=== PATIENT | female | born 1955 | race Asian ===

== ENCOUNTER 2020-08-05 08:02 | Outpatient (REF) | payer MEDICARE, SELFPAY ==
--- NOTE | 2020-08-05 | MM_ITS ---
EXAMINATION: MM SCREENING DIGITAL BREAST TOMOSYNTHESIS, BILATERAL CLINICAL INFORMATION: Screening. Asymptomatic. Right lumpectomy with radiation 2008 for breast cancer. Due for yearly. COMPARISON: Mammography: 07/31/2019, 07/29/2018, 07/19/2018, 07/16/2017 TECHNIQUE: Digital breast tomosynthesis is performed in both the craniocaudal and mediolateral oblique views along with computer-aided detection (CAD). Synthesized 2D images are generated from the tomosynthesis. Additional exaggerated right CC view is provided. FINDINGS: There are scattered areas of fibroglandular density (ACR BI-RADS breast composition Category b). Scattered bilateral asymmetries are stable. Nodular asymmetry outer right breast on CC view is stable. Neither breast shows interval mass or architectural abnormality or abnormal calcifications. Again, there are post therapy changes on the right with stable scarring posterior 1:00 position. There is some dystrophic calcification in the center of the scar. Surgical clips again noted right axilla. No significant changes from prior studies. IMPRESSION: No significant changes from prior studies. Post therapy changes right breast. ASSESSMENT: BI-RADS 2: Benign RECOMMENDATION: Routine annual mammography screening. This patient's information was entered into a reminder system with a target due date for their next mammogram.
== END 2020-08-05 08:03 | disposition home or self-care (01) ==
LOC: HO.MAMMO 08:02
PROVIDERS: PCP Internal Medicine; Visit Provider Internal Medicine
DX: Z12.31 Encounter for screening mammogram for malignant neoplasm of breast (principal)
CPT/HCPCS: 77063; 77067; 78014

== ENCOUNTER 2021-08-08 07:48 | Outpatient (REF) | payer MEDICARE, SELFPAY ==
--- NOTE | ~2021-08-08 | MM_ITS ---
EXAMINATION: MM SCREENING DIGITAL BREAST TOMOSYNTHESIS, BILATERAL CLINICAL INFORMATION: Screening. Asymptomatic. Remote right lumpectomy with radiation for breast cancer, 2008. Due for yearly. COMPARISON: Mammography: 08/05/2020, 07/31/2019, 07/29/2018, 07/19/2018, 07/16/2017, 07/13/2016, 07/06/2015. TECHNIQUE: Digital breast tomosynthesis is performed in both the craniocaudal and mediolateral oblique views along with computer-aided detection (CAD). Synthesized 2D images are generated from the tomosynthesis. FINDINGS: There are scattered areas of fibroglandular density (ACR BI-RADS breast composition Category b). Parenchymal pattern is similar to prior studies. The left breast is unremarkable. There is no developing density or interval mass or architectural abnormality. The axilla and skin contours are smooth. Right breast has post therapy changes with old scarring posterior 1:00 position and right axilla with right axillary surgical clips. There are interval coarse benign dystrophic calcification in the center of the scar. Nodularity mid upper outer right breast is stable from prior exams. No interval mass or developing density. MM/MM tomosynthesis screening BI IMPRESSION: 1. No mammographic evidence of malignancy. 2. Post therapy changes right breast with interval benign dystrophic calcifications in the scar. ASSESSMENT: BI-RADS 2: Benign RECOMMENDATION: Routine annual mammography screening. This patient's information was entered into a reminder system with a target due date for their next mammogram.
== END 2021-08-08 07:49 | disposition home or self-care (01) ==
LOC: HO.MAMMO 07:48
PROVIDERS: Visit Provider Internal Medicine
DX: Z12.31 Encounter for screening mammogram for malignant neoplasm of breast (principal)
CPT/HCPCS: 77063; 77067

== ENCOUNTER 2021-10-03 12:19 | Outpatient (REF) | payer MEDICARE, SELFPAY ==
[2021-10-03 13:56] LABS: Estimated Average Glucose 128 mg/dL; Hemoglobin A1c % 6.1 %
[2021-10-03 14:33] LABS: Alanine Aminotransferase 13 U/L (0-31); Albumin Level 4.2 g/dL (3.5-5.0); Alkaline Phosphatase 59 U/L (39-117); Anion Gap 13 (12-20); Aspartate Amino Transferase 18 U/L (5-31); Bilirubin Total 0.5 mg/dL (0.0-1.0); Blood Urea Nitrogen 17 mg/dL (9-16); Calcium 8.9 mg/dL (8.4-10.2); Carbon Dioxide 26 mmol/L (22-29); Chloride 107 mmol/L (96-108); Estimated Glomerular Filt Rate > 60; Glucose Fasting 101 mg/dL (60-99); Sodium 142 mmol/L (135-145); Total Protein 7.1 g/dL (6.5-8.0)
== END 2021-10-03 12:20 | disposition home or self-care (01) ==
LOC: HO.10HDL 12:19
PROVIDERS: Visit Provider Internal Medicine
DX: E11.9 Type 2 diabetes mellitus without complications (principal); E78.00 Pure hypercholesterolemia, unspecified; I10 Essential (primary) hypertension; Z68.25 Body mass index [BMI] 25.0-25.9, adult
CPT/HCPCS: 36415; 80053; 83036

== ENCOUNTER 2021-12-22 15:50 | Outpatient (REF) | payer MEDICARE, SELFPAY ==
[2021-12-22 16:48] LABS: Estimated Average Glucose 134 mg/dL; Hemoglobin A1c % 6.3 %
[2021-12-22 16:54] LABS: Alanine Aminotransferase 13 U/L (0-31); Albumin Level 4.2 g/dL (3.5-5.0); Alkaline Phosphatase 57 U/L (39-117); Anion Gap 12 (12-20); Aspartate Amino Transferase 19 U/L (5-31); Bilirubin Total 0.6 mg/dL (0.0-1.0); Blood Urea Nitrogen 17 mg/dL (9-16); Carbon Dioxide 27 mmol/L (22-29); Chloride 104 mmol/L (96-108); Cholesterol 157 mg/dL; Estimated Glomerular Filt Rate > 60; Glucose Random 105 mg/dL (60-115); HDL Cholesterol 58 mg/dL; LDL Cholesterol Calculated 90 mg/dl; Potassium 4.2 mmol/L (3.3-5.1); Sodium 139 mmol/L (135-145); Total Protein 7.1 g/dL (6.5-8.0); Triglycerides 49 mg/dL
[2021-12-22 17:19] LABS: Vitamin B12 496 pg/mL (200-900)
[2021-12-22 17:24] LABS: Creatinine Urine 23.53 mg/dL; Microalbumin Urine < 5.0 mg/L
== END 2021-12-22 15:51 | disposition home or self-care (01) ==
LOC: HO.LAB 15:50
PROVIDERS: PCP Internal Medicine; Visit Provider Internal Medicine
DX: E11.9 Type 2 diabetes mellitus without complications (principal); E78.00 Pure hypercholesterolemia, unspecified
CPT/HCPCS: 36415; 80053; 80061; 82043; 82607; 83036

== ENCOUNTER 2022-01-02 06:00 | Day surgery (SDC) | payer MEDICARE, SELFPAY ==
[2021-12-26 15:17] VITALS: BMI 22.3
--- NOTE | 2021-12-29 12:43 | MHC.SHP ---
Pre-Procedural Eval Section A Date of Service: 12/29/21 The patient is an INPATIENT: No Changes since office visit: No Cold of Flu in the past 2 weeks, No New Medical Problems, No Changes in Medication and No Patient answered all questions The History & Physical has been completed within 30 days and I have reviewed it.: Yes Section B Chief Complaint: cataract Allergies: Allergies Allergy/AdvReac Type Severity Reaction Status Date / Time codeine Allergy Severe Heartburn Verified 12/26/21 14:59 Plan Diagnosis/Plan: Unchanged I have reviewed the history and physical and performed a pertinent physical examination on my patient. No changes have occurred unless specified.
[2022-01-02] MEDS: Tetracaine HCl/PF 0.5% Oph Sol 4 ML DROPS 1 DROP EYE-RIGHT (06:26)
[2022-01-02 06:27] VITALS: BP 126/60; PULSE 75; RESP 18; TEMP 37.1; O2SAT 98
[2022-01-02] MEDS: Tropicamide 1 % Ophth Sol 3 ML BTL 1 DROP EYE-RIGHT ×3 (06:32→06:39)
[2022-01-02 06:34] LABS: Glucose, Whole Blood 88 mg/dL (60-115)
[2022-01-02] MEDS: Phenylephrine HCL 2.5% Oph SoL 2 ML BOTTLE 1 DROP EYE-RIGHT ×3 (06:35→06:41)
[2022-01-02] MEDS: Lactated Ringers 500 ML 50 ML IVCONT (07:00)
--- NOTE | 2022-01-02 07:06 | P.CONAN_ITS ---
HPI - Anesthesia Eval Consult details Narrative: right eye cataract [facility] Past Medical History Medical History (Updated 12/26/21 @ 15:16 by Francisca Martinez RN) Breast cancer, right breast COVID-19 vaccine series completed Pre-diabetes Family History Family history of problems with anesthesia: No Surgical History Surgical History (Updated 12/26/21 @ 15:16 by Francisca Martinez RN) H/O colonoscopy History of Hx of partial mastectomy History of Problems with Anesthesia: No Social History Social History Are you a primary home visit field care manager to a significant other at home: No Do you presently have visiting nurse or other home services: No Patient Tobacco Use Status: Never used Tobacco Use of substances other than those prescribed or required for medical reasons: No Have you been hit, kicked, punched, or otherwise hurt by someone within the past year? If so, by whom?: No Are you DNR?: No Advance Directives: No Advance Directives Information Provided: Yes (brochure mailed) Advance Directives on File: No Recently lost weight without trying: No Eating poorly because of decreased appetite: No Nutrition Risks: No Nutritional Risk Poor oral hygiene: No Meds Allergies Allergy/AdvReac Type Severity Reaction Status Date / Time codeine Allergy Severe Heartburn Verified 12/26/21 14:59 Active Medications: Current Medications Lactated Ringer's (Lr) 500 mls @ 50 mls/hr IVCONT .Q10H TIFFANY Povidone Iodine (Povidone Iodine 5 % Ophth Soln 30 Ml Bottle) 1 appl EYE-RIGHT PREOP PRN PRN Reason: Pre-Op Surgical Implant Prophy Home Medications Medication Instructions Recorded Confirmed Last Taken Type atorvastatin 10 mg tablet 1 tab PO DAILY 12/26/21 12/26/21 Unknown History cholecalciferol (vitamin D3) 25 25 mcg PO DAILY 12/26/21 12/26/21 Unknown History mcg (1,000 unit) capsule (Vitamin D3) lisinopril 2.5 mg tablet 1 tab PO DAILY 12/26/21 12/26/21 Unknown History metformin 500 mg tablet 1 tab PO BID 12/26/21 12/26/21 Unknown History multivitamin 1 tab PO DAILY 12/26/21 12/26/21 Unknown History Exam Exam Date and Time: January 02, 2022 0706 Height,Weight and Vital Signs: Height 5 ft 1.5 in Weight 54.431 kg Last Vital Signs Temp 98.7 F 01/02/22 06:27 Pulse 75 01/02/22 06:27 Resp 18 01/02/22 06:27 BP 126/60 01/02/22 06:27 Pulse Ox 98 01/02/22 06:27 Pertinent Lab Results Pertinent Lab Results: Laboratory Tests 01/02/22 06:31 POC Glucose 88 Airway Mallampati Class: II TM Dist: >3cm Neck ROM: Full Denture: Upper Loose/Missing/Broken Teeth: Yes Heart: rrr+s1s2 Lungs: cta b/l Assessment and Plan Assessment Anesthesia Assessment: Anesthesia Plan Discussed and Chart Reviewed Final Anesthetic Review Family History of Problems with Anesthesia: No History of Problems with Anesthesia: No NPO: Yes ASA Class: III Final Preanesthetic Review: No Changes in Pt Med Stat, Meds/Allgs Chart Reviewed, Consent Obtained/Reviewed and Anes Risks/Benef Reviewed Patient Risk: Intermediate Procedure Risk: Low Assessment/Block/Sedation in SS: Assess/Block/Sedation-SS Anesthetic Plan Anesthetic Plan: MAC: and Agree w/ Assess. and Plan Disposition: Standard PACU
[2022-01-02 07:54] VITALS: BP 99/55; PULSE 74; RESP 18; TEMP 36.6; O2SAT 97
--- NOTE | 2022-01-02 07:57 | HO.PNOPHT ---
Ophthalmology Procedure Procedure Date of Service: 01/02/22 Ophthalmology Lenses: LUIS MANUEL [id number] (23.5) Procedure Notes: PREOPERATIVE DIAGNOSIS: Decreased visual acuity right eye secondary to cataract POSTOPERATIVE DIAGNOSIS: Same PROCEDURE: Right cataract extraction with intraocular lens insertion SURGEON: Maxwell Zacarias M.D. ANESTHESIA: Topical/MAC ESTIMATED BLOOD LOSS: None COMPLICATIONS: None After obtaining informed consent, the patient was brought to the operating room suite and placed in the supine position. After adequate sedation per anesthesia, topical drops of Tetracaine were given to the right eye. The eye was then prepped and draped in the usual sterile fashion. The operating room microscope was then positioned over the operative eye and a lid speculum placed. A paracentesis was created. Viscoelastic was then instilled into the anterior chamber. A three plane incision was then created temporally, utilizing a 2.85 mm keratome. Capsulotomy forceps were then utilized to create a circular tear capsulotomy. Hydrodissection and hydrodelineation were carried out until adequate mobilization of the nucleus occurred. Phacoemulsification was then utilized to remove the dense central nucleus followed by removal of the cortical material utilizing the automated aspiration irrigation unit. Viscoelastic was instilled into the posterior capsular bag followed by placement of a posterior chamber intraocular lens without difficulty. The residual Viscoelastic was then removed utilizing the automated IA machine. The wound was checked and found to be watertight. The patient tolerated the procedure well and the lid speculum was removed. Intracameral injection of Vigamox 0.1 mL followed by a subtenon injection of Kenalog-40 0.2 mL were administered. The patient will be seen in the a.m.
== END 2022-01-02 08:00 | disposition home or self-care (01) ==
PROVIDERS: PCP Internal Medicine; Visit Provider Ophthalmology
PROC: (CPT 66985; principal; 2022-01-02 07:30)
DX: H25.11 Age-related nuclear cataract, right eye (principal); H52.4 Presbyopia; E11.9 Type 2 diabetes mellitus without complications; I10 Essential (primary) hypertension; Z79.84 Long term (current) use of oral hypoglycemic drugs; Z79.899 Other long term (current) drug therapy; Z88.8 Allergy status to other drugs, medicaments and biological substances
CPT/HCPCS: 66984; 82947; J2250; J3010; J3300; V2632

== ENCOUNTER 2022-01-16 06:32 | Day surgery (SDC) | payer MEDICARE, SELFPAY ==
[2021-12-26 15:19] VITALS: BMI 22.3
--- NOTE | 2022-01-13 08:46 | HO.ANESPROP2 ---
Documented by User: Toña Hoskins NP 01/13/22 08:46 HPI - Anesthesia Eval Consult details Narrative: 66yo F for Left Cataract Extraction IOL Insertion PCP cleared Right eye 01/02/22 with MAC: Fent 50, Midaz 2 PMFSH Past Medical History Medical History Breast cancer, right breast COVID-19 vaccine series completed Pre-diabetes Family History Family history of problems with anesthesia: No Surgical History Surgical History H/O colonoscopy History of Hx of partial mastectomy History of Problems with Anesthesia: No Social History Social History Are you a primary day care center director to a significant other at home: No Do you presently have visiting nurse or other home services: No Patient Tobacco Use Status: Never used Tobacco Use of substances other than those prescribed or required for medical reasons: No Have you been hit, kicked, punched, or otherwise hurt by someone within the past year? If so, by whom?: No Are you DNR?: No Advance Directives: No Advance Directives Information Provided: Yes Advance Directives on File: No Recently lost weight without trying: No Eating poorly because of decreased appetite: No Poor oral hygiene: No Meds Allergies Allergy/AdvReac Type Severity Reaction Status Date / Time codeine Allergy Severe Heartburn Verified 01/16/22 06:56 Home Medications Medication Instructions Recorded Confirmed Last Taken Type atorvastatin 10 mg tablet 1 tab PO DAILY 12/26/21 12/26/21 Unknown History cholecalciferol (vitamin D3) 25 25 mcg PO DAILY 12/26/21 12/26/21 Unknown History mcg (1,000 unit) capsule (Vitamin D3) lisinopril 2.5 mg tablet 1 tab PO DAILY 12/26/21 12/26/21 Unknown History metformin 500 mg tablet 1 tab PO BID 12/26/21 12/26/21 Unknown History multivitamin 1 tab PO DAILY 12/26/21 12/26/21 Unknown History Exam Exam Date and Time: January 13, 2022 0846 Height,Weight and Vital Signs: Height 5 ft 1.5 in Weight 54.431 kg Assessment and Plan Assessment Anesthesia Assessment: Chart Reviewed Final Anesthetic Review Family History of Problems with Anesthesia: No History of Problems with Anesthesia: No Documented by User: Alton Castorena MD 01/16/22 07:05 PMFSH Past Medical History Medical History Breast cancer, right breast COVID-19 vaccine series completed Pre-diabetes Surgical History Surgical History H/O colonoscopy History of Hx of partial mastectomy Social History Social History Are you a primary day care center director to a significant other at home: No Do you presently have visiting nurse or other home services: No Patient Tobacco Use Status: Never used Tobacco Use of substances other than those prescribed or required for medical reasons: No Have you been hit, kicked, punched, or otherwise hurt by someone within the past year? If so, by whom?: No Are you DNR?: No Advance Directives: No Advance Directives Information Provided: Yes Advance Directives on File: No Recently lost weight without trying: No Eating poorly because of decreased appetite: No Poor oral hygiene: No Meds Allergies Allergy/AdvReac Type Severity Reaction Status Date / Time codeine Allergy Severe Heartburn Verified 01/16/22 06:56 Home Medications Medication Instructions Recorded Confirmed Last Taken Type atorvastatin 10 mg tablet 1 tab PO DAILY 12/26/21 12/26/21 Unknown History cholecalciferol (vitamin D3) 25 25 mcg PO DAILY 12/26/21 12/26/21 Unknown History mcg (1,000 unit) capsule (Vitamin D3) lisinopril 2.5 mg tablet 1 tab PO DAILY 12/26/21 12/26/21 Unknown History metformin 500 mg tablet 1 tab PO BID 12/26/21 12/26/21 Unknown History multivitamin 1 tab PO DAILY 12/26/21 12/26/21 Unknown History Exam Airway Mallampati Class: II TM Dist: >3cm Neck ROM: Full Loose/Missing/Broken Teeth: No Heart: rrr+s1s2 Lungs: cta b/l Assessment and Plan Assessment Anesthesia Assessment: Anesthesia Plan Discussed Final Anesthetic Review NPO: Yes ASA Class: II Final Preanesthetic Review: No Changes in Pt Med Stat, Meds/Allgs Chart Reviewed, Consent Obtained/Reviewed and Anes Risks/Benef Reviewed Patient Risk: Low Procedure Risk: Low Assessment/Block/Sedation in SS: Assess/Block/Sedation-SS Anesthetic Plan Anesthetic Plan: MAC: and Agree w/ Assess. and Plan Disposition: Standard PACU
[2022-01-16 06:56] VITALS: BP 124/56; PULSE 64; RESP 16; TEMP 36.2; O2SAT 97
[2022-01-16] MEDS: Tetracaine HCl/PF 0.5% Oph Sol 4 ML DROPS 1 DROP EYE-LEFT (07:01)
[2022-01-16] MEDS: Tropicamide 1 % Ophth Sol 3 ML BTL 1 DROP EYE-LEFT ×3 (07:04→07:16)
[2022-01-16] MEDS: Phenylephrine HCL 2.5% Oph SoL 2 ML BOTTLE 1 DROP EYE-LEFT ×3 (07:08→07:18)
[2022-01-16] MEDS: Lactated Ringers 500 ML 50 ML IV (07:15)
--- NOTE | 2022-01-16 08:26 | HO.PNOPHT ---
Ophthalmology Procedure Procedure Date of Service: 01/16/22 Ophthalmology Viscoelastic: Healskip Duet Dual Pack Pro Ophthalmology Lenses: TECCALISTA [id number] (24) Procedure Notes: PREOPERATIVE DIAGNOSIS: Decreased visual acuity left eye secondary to cataract POSTOPERATIVE DIAGNOSIS: Same PROCEDURE: Left cataract extraction with intraocular lens insertion SURGEON: Maxwell Zacarias M.D. ANESTHESIA: Topical/MAC ESTIMATED BLOOD LOSS: None COMPLICATIONS: None After obtaining informed consent, the patient was brought to the operation room suite and placed in the supine position. After adequate sedation per anesthesia, topical drops of Tetracaine were given to the left eye. The eye was then prepped and draped in the usual sterile fashion. The operating room microscope was then positioned over the operative eye and a lid speculum placed. A paracentesis was created. Viscoelastic was then instilled into the anterior chamber. A three plane incision was then created temporally, utilizing a 2.85 mm keratome. Capsulotomy forceps were then utilized to create a circular tear capsulotomy. Hydrodissection and hydrodelineation were carried out until adequate mobilization of the nucleus occurred. Phacoemulsification was then utilized to remove the dense central nucleus followed by removal of the cortical material utilizing the automated aspiration irrigation unit. Viscoat elastic was instilled into the posterior capsular bag followed by placement of a posterior chamber intraocular lens without difficulty. The residual Viscoat elastic was then removed utilizing the automated IA machine. The wound was check and found to be watertight. The patient tolerated the procedure well and the lid speculum was removed. Intracameral injection of Vigamox 0.1 mL followed by a subtenon injection of Kenalog-40 0.2 mL were administered. The patient will be seen in the a.m.
[2022-01-16 09:00] VITALS: BP 102/64; PULSE 73; RESP 16; TEMP 36.4; O2SAT 100
== END 2022-01-16 09:03 | disposition home or self-care (01) ==
PROVIDERS: PCP Internal Medicine; Visit Provider Ophthalmology
PROC: (CPT 66985; principal; 2022-01-16 08:20)
DX: H25.12 Age-related nuclear cataract, left eye (principal); H52.4 Presbyopia; I10 Essential (primary) hypertension; E11.9 Type 2 diabetes mellitus without complications; Z79.84 Long term (current) use of oral hypoglycemic drugs; Z79.899 Other long term (current) drug therapy; Z88.8 Allergy status to other drugs, medicaments and biological substances
CPT/HCPCS: 66984; J2250; J3010; J3300; V2632

== ENCOUNTER 2022-02-23 10:22 | Outpatient (REF) | payer MEDICARE, SELFPAY ==
[2022-02-23 11:39] LABS: Estimated Average Glucose 128 mg/dL; Hemoglobin A1c % 6.1 %
[2022-02-23 12:06] LABS: Vitamin B12 435 pg/mL (200-900)
[2022-02-23 12:23] LABS: Alanine Aminotransferase 17 U/L (0-31); Albumin Level 4.4 g/dL (3.5-5.0); Alkaline Phosphatase 72 U/L (39-117); Anion Gap 11 (12-20); Aspartate Amino Transferase 21 U/L (5-31); Bilirubin Total 0.4 mg/dL (0.0-1.0); Blood Urea Nitrogen 24 mg/dL (9-16); Calcium 9.4 mg/dL (8.4-10.2); Carbon Dioxide 28 mmol/L (22-29); Chloride 103 mmol/L (96-108); Cholesterol 169 mg/dL; Estimated Glomerular Filt Rate > 60; Glucose Random 112 mg/dL (60-115); HDL Cholesterol 74 mg/dL; LDL Cholesterol Calculated 85 mg/dl; Potassium 4.1 mmol/L (3.3-5.1); Sodium 138 mmol/L (135-145); Total Protein 7.6 g/dL (6.5-8.0); Triglycerides 54 mg/dL
[2022-02-23 13:13] LABS: Creatinine Urine 63.25 mg/dL; Microalbumin Urine < 5.0 mg/L
== END 2022-02-23 10:23 | disposition home or self-care (01) ==
LOC: HO.LAB 10:22
PROVIDERS: PCP Internal Medicine; Visit Provider Internal Medicine
DX: E11.9 Type 2 diabetes mellitus without complications (principal); E78.00 Pure hypercholesterolemia, unspecified
CPT/HCPCS: 36415; 80053; 80061; 82043; 82607; 83036

== ENCOUNTER 2022-07-10 13:15 | Outpatient (REF) | payer MEDICARE, SELFPAY ==
[2022-07-10 13:58] LABS: Estimated Average Glucose 128 mg/dL; Hemoglobin A1c % 6.1 %
[2022-07-10 14:20] LABS: Alanine Aminotransferase 19 U/L (0-31); Albumin Level 4.3 g/dL (3.5-5.0); Alkaline Phosphatase 63 U/L (39-117); Anion Gap 14 (12-20); Aspartate Amino Transferase 20 U/L (5-31); Bilirubin Total 0.5 mg/dL (0.0-1.0); Blood Urea Nitrogen 21 mg/dL (9-16); Calcium 8.7 mg/dL (8.4-10.2); Carbon Dioxide 26 mmol/L (22-29); Chloride 104 mmol/L (96-108); Estimated Glomerular Filt Rate > 60; Glucose Random 104 mg/dL (60-115); Potassium 3.9 mmol/L (3.3-5.1); Sodium 140 mmol/L (135-145); Total Protein 7.3 g/dL (6.5-8.0)
== END 2022-07-10 13:16 | disposition home or self-care (01) ==
LOC: HO.LAB 13:15
PROVIDERS: PCP Internal Medicine; Visit Provider Internal Medicine
DX: Z00.00 Encounter for general adult medical examination without abnormal findings (principal); E11.9 Type 2 diabetes mellitus without complications; E78.00 Pure hypercholesterolemia, unspecified; I10 Essential (primary) hypertension
CPT/HCPCS: 36415; 80053; 83036

== ENCOUNTER 2022-08-10 07:54 | Outpatient (REF) | payer MEDICARE, SELFPAY ==
--- NOTE | ~2022-08-10 | MM_ITS ---
EXAMINATION: MM SCREENING DIGITAL BREAST TOMOSYNTHESIS, BILATERAL CLINICAL INFORMATION: Screening. Asymptomatic. Status post right breast lumpectomy. COMPARISON: Mammography: August 08, 2021 and studies dating back to June 20, 2012 TECHNIQUE: Digital breast tomosynthesis is performed in both the craniocaudal and mediolateral oblique views along with computer-aided detection (CAD). Synthesized 2D images are generated from the tomosynthesis. FINDINGS: The breasts are heterogeneously dense, which may obscure small masses (ACR BI-RADS breast composition Category c). There are no new significant masses, abnormal calcifications, or other abnormalities. Stable right breast architecture distortion from previous lumpectomy again seen. Circumscribed density medial left breast again seen. MM/MM tomosynthesis screening BI IMPRESSION: No significant changes from prior exam. ASSESSMENT: BI-RADS 2: Benign RECOMMENDATION: Routine annual mammography screening. This patient's information was entered into a reminder system with a target due date for their next mammogram.
== END 2022-08-10 07:55 | disposition home or self-care (01) ==
LOC: HO.MAMMO 07:54
PROVIDERS: PCP Internal Medicine; Visit Provider Internal Medicine
DX: Z12.31 Encounter for screening mammogram for malignant neoplasm of breast (principal)
CPT/HCPCS: 77063; 77067

== ENCOUNTER 2022-12-05 12:10 | Outpatient (REF) | payer MEDICARE, SELFPAY ==
[2022-12-05 13:54] LABS: Estimated Average Glucose 134 mg/dL; Hemoglobin A1c % 6.3 %
[2022-12-05 14:27] LABS: Alanine Aminotransferase 13 U/L (0-31); Albumin Level 4.1 g/dL (3.5-5.0); Alkaline Phosphatase 59 U/L (39-117); Anion Gap 14 (12-20); Aspartate Amino Transferase 20 U/L (5-31); Bilirubin Total 0.5 mg/dL (0.0-1.0); Blood Urea Nitrogen 20 mg/dL (9-16); Calcium 8.7 mg/dL (8.4-10.2); Carbon Dioxide 22 mmol/L (22-29); Chloride 107 mmol/L (96-108); Estimated Glomerular Filt Rate > 60; Glucose Fasting 107 mg/dL (60-99); Potassium 4.1 mmol/L (3.3-5.1); Sodium 139 mmol/L (135-145); Total Protein 6.7 g/dL (6.5-8.0)
== END 2022-12-05 12:11 | disposition home or self-care (01) ==
LOC: HO.10HDL 12:10
PROVIDERS: Visit Provider Internal Medicine
DX: E11.9 Type 2 diabetes mellitus without complications (principal); E78.00 Pure hypercholesterolemia, unspecified; I10 Essential (primary) hypertension
CPT/HCPCS: 36415; 80053; 83036

== ENCOUNTER 2023-03-08 12:21 | Outpatient (REF) | payer MEDICARE, SELFPAY ==
[2023-03-08 13:32] LABS: MANUAL DIFF FLAG NO
[2023-03-08 13:37] LABS: Basophils Absolute Auto 0.1 X10*3/uL (0.0-0.2); Basophils Percent Auto 1.1 % (0-2); Eosinophils Absolute Auto 0.2 X10*3/uL (0.0-0.4); Eosinophils Percent Auto 3.6 % (0-4); Hematocrit 40.5 % (37.0-47.0); Hemoglobin 12.6 g/dl (12.0-16.0); Imm Gran Abs Auto 0.01 X10*3/uL (0.00-0.03); Imm Gran Pct Auto 0.2 % (0.0-0.4); Lymphocytes Absolute Auto 1.5 X10*3/uL (1.2-4.9); Lymphocytes Percent Auto 30.9 % (20-40); Mean Corpuscular HGB Conc 31.1 g/dl (31.0-35.0); Mean Corpuscular Hemoglobin 29.2 pg (27.0-33.0); Mean Corpuscular Volume 93.8 fL (80.0-98.0); Mean Platelet Volume 8.6 fL (9.4-12.3); Monocytes Absolute Auto 0.4 X10*3/uL (0.1-1.2); Monocytes Percent Auto 7.7 % (2-11); Neutrophils Absolute Auto 2.7 x10*3/uL (2.0-8.3); Neutrophils Percent Auto 56.5 % (45-73); Platelet Count 423 X10*3/uL (160-400); Red Blood Count 4.32 X10*6/uL (4.20-5.50); Red Cell Distribution Width 12.3 % (11.0-16.0); White Blood Count 4.7 X10*3/uL (4.8-10.8)
[2023-03-08 13:55] LABS: Estimated Average Glucose 128 mg/dL; Hemoglobin A1C 151.6922 umol/L; Hemoglobin A1c % 6.1 %
[2023-03-08 14:32] LABS: Creatinine Urine 82.55 mg/dL
[2023-03-08 14:37] LABS: Alanine Aminotransferase 12 U/L (0-31); Albumin Level 4.2 g/dL (3.5-5.0); Alkaline Phosphatase 69 U/L (39-117); Anion Gap 15 (12-20); Aspartate Amino Transferase 16 U/L (5-31); Bilirubin Total 0.4 mg/dL (0.0-1.0); Blood Urea Nitrogen 19 mg/dL (9-16); Carbon Dioxide 26 mmol/L (22-29); Chloride 104 mmol/L (96-108); Cholesterol 154 mg/dL; Estimated Glomerular Filt Rate > 60; Glucose Random 103 mg/dL (60-115); HDL Cholesterol 60 mg/dL; LDL Cholesterol Calculated 81 mg/dl; Potassium 4.4 mmol/L (3.3-5.1); Sodium 141 mmol/L (135-145); Triglycerides 66 mg/dL
[2023-03-08 15:01] LABS: Vitamin B12 1259 pg/mL (200-900)
== END 2023-03-08 12:22 | disposition home or self-care (01) ==
LOC: HO.10HDL 12:21
PROVIDERS: Visit Provider Internal Medicine
DX: E11.9 Type 2 diabetes mellitus without complications (principal); E78.00 Pure hypercholesterolemia, unspecified; I10 Essential (primary) hypertension
CPT/HCPCS: 36415; 80053; 80061; 82043; 82607; 83036; 85025

== ENCOUNTER 2023-07-12 12:49 | Outpatient (REF) | payer MEDICARE, SELFPAY ==
[2023-07-12 14:00] LABS: Alanine Aminotransferase 13 U/L (0-31); Albumin Level 4.1 g/dL (3.5-5.0); Alkaline Phosphatase 58 U/L (39-117); Anion Gap 11 (12-20); Aspartate Amino Transferase 19 U/L (5-31); Bilirubin Total 0.3 mg/dL (0.0-1.0); Blood Urea Nitrogen 16 mg/dL (9-16); Calcium 8.8 mg/dL (8.4-10.2); Carbon Dioxide 26 mmol/L (22-29); Chloride 104 mmol/L (96-108); Estimated Glomerular Filt Rate > 60; Glucose Random 119 mg/dL (60-115); Potassium 3.9 mmol/L (3.3-5.1); Sodium 137 mmol/L (135-145); Total Protein 7.1 g/dL (6.5-8.0)
[2023-07-12 14:01] LABS: Estimated Average Glucose 126 mg/dL
== END 2023-07-12 12:50 | disposition home or self-care (01) ==
LOC: HO.LAB 12:49
PROVIDERS: PCP Internal Medicine; Visit Provider Internal Medicine
DX: E11.9 Type 2 diabetes mellitus without complications (principal); E78.00 Pure hypercholesterolemia, unspecified; I10 Essential (primary) hypertension; Z86.010 Personal history of colon polyps
CPT/HCPCS: 36415; 80053; 83036

== ENCOUNTER 2023-08-23 07:56 | Outpatient (REF) | payer MEDICARE, SELFPAY ==
--- NOTE | ~2023-08-23 | MM_ITS ---
EXAMINATION: MM SCREENING DIGITAL BREAST TOMOSYNTHESIS, BILATERAL CLINICAL INFORMATION: Screening. Asymptomatic. 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 COMPARISON: Mammography: 08/10/2022, 08/08/2021, 08/05/2020, 07/31/2019, 07/29/2018, 07/19/2018, 07/16/2017, 07/13/2016, 07/06/2015. TECHNIQUE: Digital breast tomosynthesis is performed in both the craniocaudal and mediolateral oblique views along with computer-aided detection (CAD). Synthesized 2D images are generated from the tomosynthesis. A second right CC view was also included. FINDINGS: The breasts are heterogeneously dense, which may obscure small masses (ACR BI-RADS breast composition Category c). There are post treatment related changes in the right upper medial breast with scarring and fat necrosis and associated dystrophic calcification. There has been right axillary lymph node dissection. There are no suspicious masses, suspicious grouped calcifications, or areas of architectural distortion in either breast. The parenchymal pattern is bilaterally stable from prior exams. MM/MM tomosynthesis screening BI IMPRESSION: No mammographic evidence of malignancy. Stable post treatment related changes right breast and axilla. ASSESSMENT: BI-RADS BI-RADS 2 - Benign Findings RECOMMENDATION: Routine annual mammography screening. 1 year F/U This examination should not preclude the clinical evaluation of a suspicious palpable abnormality. This patient's information was entered into a reminder system with a target due date for their next mammogram.
== END 2023-08-23 07:57 | disposition home or self-care (01) ==
LOC: HO.MAMMO 07:56
PROVIDERS: PCP Internal Medicine; Visit Provider Internal Medicine
DX: Z12.31 Encounter for screening mammogram for malignant neoplasm of breast (principal)
CPT/HCPCS: 77063; 77067

== ENCOUNTER → 2023-08-23 08:00 | Outpatient (BNV) | payer MEDICARE, SELFPAY | PROVIDERS: PCP Internal Medicine; Visit Provider Radiology Diagnostic Radiology | DX: Z12.31 Encounter for screening mammogram for malignant neoplasm of breast (principal) | CPT/HCPCS: 77063; 77067 ==

== ENCOUNTER 2023-11-09 13:02 | Outpatient (REF) | payer MEDICARE, SELFPAY ==
[2023-11-09 14:36] LABS: Estimated Average Glucose 131 mg/dL; Hemoglobin A1C 151.9408 umol/L; Hemoglobin A1c % 6.2 % (<6.0)
[2023-11-09 15:34] LABS: Alanine Aminotransferase 17 U/L (0-31); Albumin Level 4.3 g/dL (3.5-5.0); Alkaline Phosphatase 57 U/L (39-117); Anion Gap 12 (12-20); Aspartate Amino Transferase 23 U/L (5-31); Bilirubin Total 0.3 mg/dL (0.0-1.0); Blood Urea Nitrogen 16 mg/dL (9-16); Carbon Dioxide 25 mmol/L (22-29); Chloride 106 mmol/L (96-108); Estimated Glomerular Filt Rate > 60; Glucose Random 102 mg/dL (60-115); Potassium 4.3 mmol/L (3.3-5.1); Sodium 139 mmol/L (135-145); Total Protein 7.7 g/dL (6.5-8.0)
== END 2023-11-09 13:03 | disposition home or self-care (01) ==
LOC: HO.LAB 13:02
PROVIDERS: PCP Internal Medicine; Visit Provider Internal Medicine
DX: E11.9 Type 2 diabetes mellitus without complications (principal); I10 Essential (primary) hypertension; L82.1 Other seborrheic keratosis; Z86.010 Personal history of colon polyps
CPT/HCPCS: 36415; 80053; 83036

== ENCOUNTER 2024-01-02 06:09 | Day surgery (SDC) | payer MEDICARE, SELFPAY ==
[2023-12-31 13:30] VITALS: BMI 23.0
--- NOTE | 2023-12-31 13:58 | P.CONAN_ITS ---
Documented by User: Toña Hoskins NP 12/31/23 13:59 HPI - Anesthesia Eval Consult details Narrative: 68yo F for Colonoscopy [facility] Past Medical History Medical History COVID-19 vaccine series completed Pre-diabetes Breast cancer, right breast Family History Family history of problems with anesthesia: No Surgical History Surgical History (Updated 01/02/24 @ 06:27 by Annette Cruz RN) Hx of cataract extraction History of H/O colonoscopy Hx of partial mastectomy History of Problems with Anesthesia: No Social History Social History Are you a primary healthcare science specialist to a significant other at home: No Do you presently have visiting nurse or other home services: No Patient Tobacco Use Status: Never used Tobacco Use of substances other than those prescribed or required for medical reasons: No Are you DNR?: No Advance Directives: No Advance Directives Information Provided: Yes Meds Allergies Allergy/AdvReac Type Severity Reaction Status Date / Time codeine Allergy Severe Heartburn Verified 01/02/24 06:28 Home Medications Medication Instructions Recorded Confirmed Last Taken Type atorvastatin 10 mg tablet 1 tab PO DAILY 12/26/21 12/31/23 Unknown History cholecalciferol (vitamin D3) 25 25 mcg PO DAILY 12/26/21 12/26/21 Unknown History mcg (1,000 unit) capsule (Vitamin D3) metformin 500 mg tablet 1 tab PO DAILY 12/26/21 12/31/23 Unknown History multivitamin 1 tab PO DAILY 12/26/21 12/26/21 Unknown History lisinopril 5 mg tablet 5 mg PO DAILY 12/31/23 12/31/23 Unknown History Fish Oil 01/02/24 01/02/24 Unknown History Vitamin B-12 01/02/24 Unknown History Exam Height,Weight and Vital Signs: Height 5 ft 1 in Weight 55.338 kg Pertinent Lab Results Pertinent Lab Results: Laboratory Tests 03/08/23 11/09/23 11/09/23 12:28 13:20 13:20 WBC 4.7 L Hgb 12.6 Hct 40.5 Plt Count 423 H Sodium 139 Potassium 4.3 Chloride 106 Carbon Dioxide 25 BUN 16 Creatinine 0.74 Assessment and Plan Assessment Anesthesia Assessment: Chart Reviewed Final Anesthetic Review Family History of Problems with Anesthesia: No History of Problems with Anesthesia: No Documented by User: Timbo Jones MD 01/02/24 07:27 [facility] Past Medical History Medical History COVID-19 vaccine series completed Pre-diabetes Breast cancer, right breast Surgical History Surgical History (Updated 01/02/24 @ 06:27 by Annette Cruz RN) Hx of cataract extraction History of H/O colonoscopy Hx of partial mastectomy Social History Social History Are you a primary healthcare science specialist to a significant other at home: No Do you presently have visiting nurse or other home services: No Patient Tobacco Use Status: Never used Tobacco Use of substances other than those prescribed or required for medical reasons: No Are you DNR?: No Advance Directives: No Advance Directives Information Provided: Yes Meds Allergies Allergy/AdvReac Type Severity Reaction Status Date / Time codeine Allergy Severe Heartburn Verified 01/02/24 06:28 Home Medications Medication Instructions Recorded Confirmed Last Taken Type atorvastatin 10 mg tablet 1 tab PO DAILY 12/26/21 12/31/23 Unknown History cholecalciferol (vitamin D3) 25 25 mcg PO DAILY 12/26/21 12/26/21 Unknown History mcg (1,000 unit) capsule (Vitamin D3) metformin 500 mg tablet 1 tab PO DAILY 12/26/21 12/31/23 Unknown History multivitamin 1 tab PO DAILY 12/26/21 12/26/21 Unknown History lisinopril 5 mg tablet 5 mg PO DAILY 12/31/23 12/31/23 Unknown History Fish Oil 01/02/24 01/02/24 Unknown History Vitamin B-12 01/02/24 Unknown History Exam Airway Mallampati Class: II TM Dist: >3cm Neck ROM: Full Partial: Upper Loose/Missing/Broken Teeth: No Heart: rrr Lungs: cta b/l Assessment and Plan Assessment Anesthesia Assessment: Anesthesia Plan Discussed Final Anesthetic Review NPO: Yes ASA Class: II Final Preanesthetic Review: No Changes in Pt Med Stat, Meds/Allgs Chart Reviewed, Consent Obtained/Reviewed and Anes Risks/Benef Reviewed Patient Risk: Low Procedure Risk: Low Anesthetic Plan Anesthetic Plan: MAC: Disposition: Standard PACU
[2024-01-02 06:29] VITALS: BMI 22.9
[2024-01-02 07:06] LABS: Glucose, Whole Blood 97 mg/dL (60-115)
[2024-01-02 07:12] VITALS: BP 109/80; PULSE 76; RESP 15; TEMP 36.9; O2SAT 99
[2024-01-02] MEDS: Lactated Ringers 1,000 ML 100 ML IVCONT (07:13)
[2024-01-02 08:43] VITALS: BP 92/48; PULSE 69; RESP 15; TEMP 36.2; O2SAT 97
--- NOTE | 2024-01-02 08:44 | PM.OP ---
Brief Operative Note Date of Service: 01/02/24 Pre-op diagnosis: Screening Post-op diagnosis: other (Colon Polyp) Procedure: Colonoscopy to the cecum and TI with cold snare polypectomy Surgeon: Jarett Bryant MD Anesthesia: MAC Was an Printing Services Coordinator used for this Procedure?: No Estimated blood loss (mL): 2.0 Pathology: other (A. Polyp at 40cm) Condition: stable Disposition: PACU
[2024-01-02 08:58] VITALS: BP 103/62; PULSE 73; RESP 15; O2SAT 99
--- NOTE | 2024-01-02 09:00 | OP_ITS ---
DATE OF SERVICE: 01/02/2024 SURGEON: Jarett Bryant MD INDICATIONS: The patient presents for evaluation of personal history of tubular adenomas and colorectal cancer screening. Full consent obtained from her for this, including risks of bleeding and perforation. PREOPERATIVE DIAGNOSIS: POSTOPERATIVE DIAGNOSIS: PROCEDURE PERFORMED: Colonoscopy to cecum and terminal ileum with cold snare polypectomy. ESTIMATED BLOOD LOSS: COMPLICATIONS: ANESTHESIA: Monitored anesthesia care. ASSISTANTS: SPECIMENS: PREOPERATIVE DIAGNOSES: Colorectal cancer screening and personal history of tubular adenomas. POSTOPERATIVE DIAGNOSES: Colorectal cancer screening and personal history of tubular adenomas, small colon polyp, sigmoid diverticulosis and internal hemorrhoids. DESCRIPTION OF PROCEDURE: The patient was placed in the left lateral decubitus position. The digital rectal exam revealed no abnormalities. The Olympus video pediatric colonoscope was entered into the rectum and advanced to the cecum. Advancement to the cecum was difficult and required abdominal wall pressure and turning her into the supine position. Once in the cecum, I did identify normal-appearing cecal pouch with appendiceal orifice and a normal-appearing ileocecal valve. The terminal ileum was cannulated and appeared normal. The scope was slowly withdrawn, assessing all mucosal surfaces carefully. Preparation was excellent. At 40 cm was a flat, approximately 5 mm polyp, which was removed by cold snare polypectomy, recovered by suction. The polypectomy site appeared clean, without any sign of residual polyp, nor significant bleeding. I did not visualize any other polyps, colitis, or angiodysplasia. There was a mild amount of sigmoid diverticulosis. In the rectum, scope was retroflexed visualizing internal hemorrhoids, but no other pathology. The rectal mucosa appeared normal. Scope was straightened and withdrawn from the patient. She tolerated the procedure well and was returned to recovery area in stable condition. IMPRESSION: 1. Small colon polyp. 2. Sigmoid diverticulosis. 3. Internal hemorrhoids. PLAN: The results of the biopsy will be checked. I would recommend a repeat colonoscopy in 5 years. She was advised not to use any aspirin or NSAIDs for 1 week. MD HAO Skinner/SHAVONL / [phone]
[2024-01-02 09:09] VITALS: BP 103/62; PULSE 69; RESP 16; TEMP 36.2; O2SAT 98
== END 2024-01-02 09:53 | disposition home or self-care (01) ==
PROVIDERS: PCP Internal Medicine; Visit Provider Internal Medicine
PROC: 0DJD8ZZ Inspection of Lower Intestinal Tract, Via Natural or Artificial Opening Endoscopic (ICD-10-PCS; CPT 45378; principal; 2024-01-02 07:30)
DX: Z12.11 Encounter for screening for malignant neoplasm of colon (principal); Z86.010 Personal history of colon polyps; K63.5 Polyp of colon; K57.30 Diverticulosis of large intestine without perforation or abscess without bleeding; K64.8 Other hemorrhoids; I10 Essential (primary) hypertension; E78.5 Hyperlipidemia, unspecified; E11.9 Type 2 diabetes mellitus without complications; Z85.3 Personal history of malignant neoplasm of breast; Z92.3 Personal history of irradiation; Z79.84 Long term (current) use of oral hypoglycemic drugs; Z79.899 Other long term (current) drug therapy
CPT/HCPCS: 45385; 82947; 88305; J2704

== ENCOUNTER 2024-03-06 11:51 | Outpatient (REF) | payer MEDICARE, SELFPAY ==
[2024-03-06 12:08] LABS: MANUAL DIFF FLAG NO
[2024-03-06 12:51] LABS: Basophils Percent Auto 0.6 % (0-2); Eosinophils Absolute Auto 0.1 X10*3/uL (0.0-0.4); Eosinophils Percent Auto 1.5 % (0-4); Hematocrit 43.4 % (37.0-47.0); Hemoglobin 13.8 g/dl (12.0-16.0); Imm Gran Abs Auto 0.02 X10*3/uL (0.00-0.03); Imm Gran Pct Auto 0.4 % (0.0-0.4); Lymphocytes Absolute Auto 1.6 X10*3/uL (1.2-4.9); Lymphocytes Percent Auto 29.6 % (20-40); Mean Corpuscular HGB Conc 31.8 g/dl (31.0-35.0); Mean Corpuscular Hemoglobin 29.2 pg (27.0-33.0); Mean Corpuscular Volume 91.9 fL (80.0-98.0); Mean Platelet Volume 8.4 fL (9.4-12.3); Monocytes Absolute Auto 0.3 X10*3/uL (0.1-1.2); Monocytes Percent Auto 5.8 % (2-11); Neutrophils Absolute Auto 3.3 x10*3/uL (2.0-8.3); Neutrophils Percent Auto 62.1 % (45-73); Platelet Count 437 X10*3/uL (160-400); Red Blood Count 4.72 X10*6/uL (4.20-5.50); Red Cell Distribution Width 12.7 % (11.0-16.0); White Blood Count 5.3 X10*3/uL (4.8-10.8)
[2024-03-06 13:29] LABS: Alanine Aminotransferase 15 U/L (0-31); Albumin Level 4.4 g/dL (3.5-5.0); Alkaline Phosphatase 63 U/L (39-117); Anion Gap 15 (12-20); Aspartate Amino Transferase 20 U/L (5-31); Bilirubin Total 0.3 mg/dL (0.0-1.0); Blood Urea Nitrogen 15 mg/dL (9-16); Calcium 9.3 mg/dL (8.4-10.2); Carbon Dioxide 25 mmol/L (22-29); Chloride 104 mmol/L (96-108); Cholesterol 180 mg/dL (<200); Estimated Glomerular Filt Rate > 60; Glucose Random 102 mg/dL (60-115); HDL Cholesterol 77 mg/dL (>40); LDL Cholesterol Calculated 90 mg/dL (<100); Potassium 3.5 mmol/L (3.3-5.1); Sodium 140 mmol/L (135-145); Total Protein 7.9 g/dL (6.5-8.0); Triglycerides 69 mg/dL (<150)
[2024-03-06 13:40] LABS: Estimated Average Glucose 131 mg/dL; Hemoglobin A1c % 6.2 % (<6.0)
[2024-03-06 14:10] LABS: Vitamin B12 1193 pg/mL (200-900)
[2024-03-06 14:28] LABS: Microalbum/Creatinine Ratio Ur 6.6 ug/mg cr (<30)
== END 2024-03-06 11:52 | disposition home or self-care (01) ==
LOC: HO.LAB 11:51
PROVIDERS: PCP Internal Medicine; Visit Provider Internal Medicine
DX: E11.9 Type 2 diabetes mellitus without complications (principal); E78.00 Pure hypercholesterolemia, unspecified; I10 Essential (primary) hypertension; Z68.25 Body mass index [BMI] 25.0-25.9, adult
CPT/HCPCS: 36415; 80053; 80061; 82043; 82570; 82607; 83036; 85025

== ENCOUNTER 2024-07-14 10:32 | Outpatient (REF) | payer MEDICARE, SELFPAY ==
[2024-07-14 13:40] LABS: Alanine Aminotransferase 14 U/L (0-31); Albumin Level 4.4 g/dL (3.5-5.0); Alkaline Phosphatase 67 U/L (39-117); Anion Gap 13 (12-20); Aspartate Amino Transferase 22 U/L (5-31); Bilirubin Total 0.4 mg/dL (0.0-1.0); Blood Urea Nitrogen 20 mg/dL (9-16); Calcium 9.1 mg/dL (8.4-10.2); Carbon Dioxide 27 mmol/L (22-29); Chloride 104 mmol/L (96-108); Estimated Glomerular Filt Rate > 60; Glucose Random 113 mg/dL (60-115); Sodium 140 mmol/L (135-145); Total Protein 7.6 g/dL (6.5-8.0)
[2024-07-14 14:40] LABS: Estimated Average Glucose 131 mg/dL; Hemoglobin A1c % 6.2 % (<6.0)
== END 2024-07-14 10:33 | disposition home or self-care (01) ==
LOC: HO.10HDL 10:32
PROVIDERS: Visit Provider Internal Medicine
DX: Z13.31 Encounter for screening for depression (principal); E11.9 Type 2 diabetes mellitus without complications; E78.00 Pure hypercholesterolemia, unspecified; I10 Essential (primary) hypertension
CPT/HCPCS: 36415; 80053; 83036

== ENCOUNTER 2024-08-27 08:02 | Outpatient (REF) | payer MEDICARE, SELFPAY ==
--- NOTE | ~2024-08-27 | MM_ITS ---
EXAMINATION: MM SCREENING DIGITAL BREAST TOMOSYNTHESIS, BILATERAL CLINICAL INFORMATION: Screening. Asymptomatic. COMPARISON: Mammography: Comparison is made with available priors TECHNIQUE: Digital breast mammography with tomosynthesis is performed in both the craniocaudal and mediolateral oblique views along with computer-aided detection (CAD). FINDINGS: The breasts are heterogeneously dense, which may obscure small masses (ACR BI-RADS breast composition Category c). Focal asymmetry right upper outer breast middle to posterior depth is stable. There are no significant masses, abnormal calcifications, or other abnormalities. MM/MM tomosynthesis screening BI IMPRESSION: No mammographic evidence of malignancy. ASSESSMENT: BI-RADS BI-RADS 2 - Benign Findings RECOMMENDATION: Routine annual mammography screening. 1 year F/U This examination should not preclude the clinical evaluation of a suspicious palpable abnormality. This patient's information was entered into a reminder system with a target due date for their next mammogram. Electronically signed by: Shawna Gillespie DO 09/04/2024 10:47 AM GER
== END 2024-08-27 08:03 | disposition home or self-care (01) ==
LOC: HO.MAMMO 08:02
PROVIDERS: PCP Internal Medicine; Visit Provider Internal Medicine
DX: Z12.31 Encounter for screening mammogram for malignant neoplasm of breast (principal)
CPT/HCPCS: 77063; 77067

== ENCOUNTER → 2024-08-27 08:15 | Outpatient (BNV) | payer MEDICARE, SELFPAY | PROVIDERS: PCP Internal Medicine; Visit Provider Internal Medicine | DX: Z12.31 Encounter for screening mammogram for malignant neoplasm of breast (principal) | CPT/HCPCS: 77063; 77067 ==

== ENCOUNTER 2024-11-27 13:31 | Outpatient (REF) | payer MEDICARE, SELFPAY ==
[2024-11-27 14:28] LABS: Estimated Average Glucose 131 mg/dL; Hemoglobin A1C 147.1302 umol/L; Hemoglobin A1c % 6.2 % (<6.0); Total Hemoglobin (HGBA1C) 3287.9389 umol/L
[2024-11-27 15:02] LABS: Alanine Aminotransferase 16 U/L (0-31); Albumin Level 4.3 g/dL (3.5-5.0); Alkaline Phosphatase 74 U/L (39-117); Anion Gap 9 (12-20); Aspartate Amino Transferase 24 U/L (5-31); Bilirubin Total 0.3 mg/dL (0.0-1.0); Blood Urea Nitrogen 16 mg/dL (9-16); Calcium 8.4 mg/dL (8.4-10.2); Carbon Dioxide 26 mmol/L (22-29); Chloride 109 mmol/L (96-108); Estimated Glomerular Filt Rate > 60; Glucose Random 102 mg/dL (60-115); Potassium 3.8 mmol/L (3.3-5.1); Sodium 140 mmol/L (135-145); Total Protein 7.8 g/dL (6.5-8.0)
[2024-11-27 15:28] LABS: Vitamin B12 1251 pg/mL (200-900)
--- OUTSIDE RECORDS SUMMARY | 2024-11-27 17:24 | XMS_ITS ---
Author Organization [facility] Address [address] [place] [address] Care Team Providers Care Molecular Biology Scientist Name Role Phone Elyssa Alcantar Primary Care Provider Unavailab Jarett Saenz Unavailable [phone] REASON FOR VISIT screening PROBLEMS Problem Type ICD Code Onset Dates Problem Status W/U Status Risk SNOMED Code Notes Problem Diverticulosis of large intestine without perforation or abscess without bleeding (K57.30) Active confirmed Diverticul ar disease of colon (144383416) Encounters Encounter Location Date Provider Diagnosis [facility] [place] [facility] [address] [facility] [place] [id number] 01/02/2024 Jarett Bryant Encounter for scre ening colonoscopy Z12.11 ; Colon polyps K63.5 ; Diverticulosis of large intestine without perforation or abscess without bleeding K57.30 and Other hemorrhoids K64.8 ASSESSMENTS Encounter Date Diagnosis Assessment Notes Treatment Notes Treatment Clinical Notes 01/02/2024 Encounter for screening colonoscopy (ICD-10 - Z12.11) 01/02/2024 Colon polyps (ICD-10 - K63.5) 01/02/2024 Diverticulosis of large intestine without perforation or abscess without bleeding (ICD-10 - K57.30) 01/02/2024 Other hemorrhoids (ICD-10 - K64.8) PLAN OF TREATMENT No Information
--- OUTSIDE RECORDS SUMMARY | 2024-11-27 17:24 | XMS_ITS ---
Author Organization [facility] Address [address] [place] [address] Care Team Providers Care Duty Officer Name Role Phone Elyssa Alcantar Primary Care Provider Unavailab Jarett Saezn Unavailable [phone] ALLERGIES Allergen (clinical drug ingredient) Drug/Non Drug Allergy documented on EMR Reaction Allergy Type Onset Date Status Codeine Phosphate hives Drug Allergy Active REASON FOR VISIT Patient presents today for a SCREENING COLON MEDICATIONS Medication SIG (Take, Route, Frequency, Duration) Notes Start Date End Date Status Atorvastatin Calcium 10 MG 1 tablet Oral ly Once a day for 30 day(s) Active metFORMIN HCl 500 MG 1 tablet with a teodora l Orally Once a day for 30 day(s) Active Lisinopril 5 MG 1 tablet Orally Once a day for 30 day(s) Active VITAL SIGNS BMI 23.05 kg/m2 09/12/2023 Blood pressure systolic 000 mm Hg 09/12/20 23 Blood pressure diastolic 00 mm Hg 023 Height 61 in 09/12/2023 Temperature 97.5 degrees Fahrenheit 09/12/20 23 Weight 122 lbs 09/12/2023 Encounters Encounter Location Date Provider Diagnosis [facility] [address] [place] [address] 09/12/2023 Jarett Bryant Hx of adenomatous colonic polyps Z86.010 ; Pre-procedural examination Z01.818 and Encounter for screening for malignant neoplasm of colon Z12.11 ASSESSMENTS Encounter Date Diagnosis Assessment Notes Treatment Notes Treatment Clinical Notes 09/12/2023 Hx of adenomatous colonic polyps (ICD-10 - Z86.010) 09/12/2023 Pre-procedural examination (ICD-10 - Z01.818) 09/12/2023 Encounter for screening for malignant neoplasm of colon (ICD-10 - Z12.11) Do not take the Metformin the night before nor on the morning of the colonoscopy PLAN OF TREATMENT Treatment Notes Assessment Notes Encounter for screening for malignant neoplasm of colon Do not take the Metformin the night befo re nor on the morning of the colonoscopy Future Test Test Name Order Date COLONOSCOPY 09/12/2023 Next Appt Details Follow Up: prn, Reason: Progress Notes * Examination Category Sub-Category Detail Notes General Examination GENERAL APPEARANCE: pleasant , well nourished, well developed, in no acute distress EYES: sclera non-icteric NECK/THYROID: no cervical lymphade nopathy, neck supple HEART: S1, S2 normal LUNGS: clear to auscultatio n bilaterally ABDOMEN: normal bowel sounds, no guarding or rigidity, no hepatosplenomegaly, no masses palpable, soft, nontender, nondistended. NEUROLOGIC: alert and oriented SKIN: nonjaundiced, no spi juancarlos angiomata. EXTREMITIES: no edema ORAL CAVITY: mucosa moist
--- OUTSIDE RECORDS SUMMARY | 2024-11-27 17:24 | XMS_ITS | Patient Health Record ---
Author Organization [facility] Address [address] [place] [address] Care Team Providers Care Casualty Claim Adjuster Name Role Phone Elyssa Alcantar Primary Care Provider Jarett Mc Unavailable [phone] ALLERGIES Allergen (clinical drug ingredient) Drug/Non Drug Allergy documented on EMR Reaction Allergy Type Onset Date Status Codeine Phosphate hives Drug Allergy Active RESULTS Component Value Reference Range Notes Pathology (Not yet reviewed by provider) Interpretation: Performing Lab:[facility], [address] [place] [phone] Notes/Report: Glucose, Whole Blood Reviewed date:01/02/2024 01:39:44 PM Interpretation: Performing Lab:[facility], [address] [place] [phone] Notes/Report: Glucose, Whole Blood 97 60-115 mg/dL METER # : [id number] REASON FOR REFERRAL No Information MEDICATIONS Medication SIG (Take, Route, Frequency, Duration) Notes Start Date End Date Status Atorvastatin Calcium 10 MG 1 tablet Oral ly Once a day for 30 day(s) Active metFORMIN HCl 500 MG 1 tablet with a teodora l Orally Once a day for 30 day(s) Active Lisinopril 5 MG 1 tablet Orally Once a day for 30 day(s) Active IMMUNIZATIONS Vaccine Route Administration Date Status Comme nts Influenza Unknown 08/29/2023 Administered SOCIAL HISTORY Sex Assigned At : Social History Observation Description Sex Assigned At Unknown PROBLEMS Problem Type ICD Code Onset Dates Problem Status W/U Status Risk SNOMED Code Notes Problem Encounter for screening for malignant neoplasm of colon (Z12.11) Active confirmed 493185370 Problem Diverticulosis of large intestine without perforation or abscess without bleeding (K57.30) Active confirmed Diverticul ar disease of colon (053169561) Problem Hx of adenomatous colonic polyps (Z86.010) Active confirmed 136775519 Problem Pre-procedural examination (Z01.818) Active confirmed 198233677 Encounters Encounter Location Date Provider Diagnosis [facility] [address] [place], [place] [id number] 01/02/2024 Jarett Bryant Encounter for scre ening [...] hemorrhoids (ICD-10 - K64.8) PLAN OF TREATMENT Pending Test Test Name Order Date Pathology 01/02/2024 Future Test Test Name Order Date COLONOSCOPY 08/27/2012 COLONOSCOPY 10/16/2017 COLONOSCOPY 09/12/2023 Insurance Providers Payer Name Payer Address Payer Phone Subscriber Number Group Number Insured Name Patient Relationship to Insured Coverage Start Date Coverage End Date [facility] PROF[employer] CLAIMS [address] [place] [address] [id number] DAFYESICAGREGORIA Ivana JOAO Self - patient is the insured MEDICAL (GENERAL) HISTORY Medical History History ICD Code Colonoscopy 11/27/2006 and with removal of a small tubular adenoma; also noted to have diverticulosis and internal hemorrhoids Denies [place],DM,CVA,Lung disease,renal dise ase Right sided breast cancer, as below-had XRT as well Negative screening colonoscopy in 2017 NIDDM HTN Hyperlipidemia Surgical History Surgery Date(Month/Year) Right lumpectomy with lymph node dissection in 2008 for breast cancer, and also received XRT Cataracts
== END 2024-11-27 13:32 | disposition home or self-care (01) ==
LOC: HO.LAB 13:31
PROVIDERS: PCP Internal Medicine; Visit Provider Internal Medicine
DX: E11.9 Type 2 diabetes mellitus without complications (principal); E78.00 Pure hypercholesterolemia, unspecified; I10 Essential (primary) hypertension; Z68.25 Body mass index [BMI] 25.0-25.9, adult
CPT/HCPCS: 36415; 80053; 82607; 83036

== ENCOUNTER 2025-04-02 11:51 | Outpatient (REF) | payer MEDICARE, SELFPAY ==
[2025-04-02 13:17] LABS: Estimated Average Glucose 137 mg/dL; Hemoglobin A1C 151.1284 umol/L; Hemoglobin A1c % 6.4 % (<6.0); Total Hemoglobin (HGBA1C) 3289.5826 umol/L
[2025-04-02 13:28] LABS: Alanine Aminotransferase 29 U/L (0-31); Albumin Level 4.3 g/dL (3.5-5.0); Alkaline Phosphatase 67 U/L (39-117); Anion Gap 9 (12-20); Aspartate Amino Transferase 27 U/L (5-31); Bilirubin Total 0.3 mg/dL (0.0-1.0); Blood Urea Nitrogen 20 mg/dL (9-16); Carbon Dioxide 29 mmol/L (22-29); Chloride 109 mmol/L (96-108); Cholesterol 167 mg/dL (<200); Estimated Glomerular Filt Rate > 60; Glucose Random 116 mg/dL (60-115); HDL Cholesterol 62 mg/dL (>40); LDL Cholesterol Calculated 92 mg/dL (<100); Sodium 143 mmol/L (135-145); Total Protein 7.2 g/dL (6.5-8.0); Triglycerides 69 mg/dL (<150)
[2025-04-02 13:38] LABS: Creatinine Urine 87.32 mg/dL; Microalbumin Urine < 5.0 mg/L
--- OUTSIDE RECORDS SUMMARY | 2025-04-02 14:04 | XMS_ITS ---
Author Organization [facility] Address [address] [place] [address] Care Team Providers Care Pershing Missile Crewmember Name Role Phone CamilajesseElyssa Primary Care Provider Unavailab Jarett Saenz Unavailable [phone] REASON FOR VISIT screening Problems Problem Type SNOMED Code ICD Code Onset Dates Problem Status W/U Status Risk Notes Problem Diverticular disease of colon (092507081) Diverticulosis of large intestine without perforation or abscess without bleeding (K57.30) Active confirmed Encounters Encounter Location Date Provider Diagnosis [facility] [place] [facility] [address] [place] [id number] 01/02/2024 Jarett Bryant Encounter for scre ening colonoscopy Z12.11 ; Colon polyps K63.5 ; Diverticulosis of large intestine without perforation or abscess without bleeding K57.30 and Other hemorrhoids K64.8 Assessments Encounter Date Diagnosis (ICD Code) Assessment Notes Treatment Notes Treatment Clinical Notes Section Notes 01/02/2024 Encounter for screening colonoscopy (ICD-10 - Z12.11) 01/02/2024 Colon polyps (ICD-10 - K63.5) 01/02/2024 Diverticulosis of large intestine without perforation or abscess without bleeding (ICD-10 - K57.30) 01/02/2024 Other hemorrhoids (ICD-10 - K64.8) Plan Of Treatment No Information Progress Notes * DRAGAN BAZAN: (69 yo F)Acc No.[id number]:01/02/2024 COLON WITH MAC Patient:?JOAO BAZAN Provider:?Jarett Bryant MD :[id number]???Age:68 Y???Sex:Female D ate:01/02/2024 Address: [address], [place] , [place] Pcp:Elyssa Alcantar Subjective: * Chief Complaints: * ???1. Screening. * Medical History:? Objective: * Vitals:? Assessment: * Assessment: 1.?Encounter for screening c olonoscopy - Z12.11 (Primary)???2.?Colon polyps - K63.5???3.?Diverticulosis of large intestine without perforation or abscess without bleeding - K57.30???4.?Other hemorrhoids - K64.8??? Plan: * Treatment: * Procedure Codes:?90141 LESIO N REMOVAL COLONOSCOPY, Modifiers: PT * * The named appointment provid er may or may not be the originator of this progress note, and it is not deemed complete until electronically signed by the appointment provider. Sign off status: Pending * Provider:?Jarett Bryant MD Date:? 024 Generated for Raymond hsu/Mannie/eTransmitting on:?04/02/2025 02:04 PM EDT
== END 2025-04-02 11:52 | disposition home or self-care (01) ==
LOC: HO.10HDL 11:51
PROVIDERS: Visit Provider Internal Medicine
DX: E11.9 Type 2 diabetes mellitus without complications (principal); E78.00 Pure hypercholesterolemia, unspecified; I10 Essential (primary) hypertension; Z68.26 Body mass index [BMI] 26.0-26.9, adult
CPT/HCPCS: 36415; 80053; 80061; 82043; 82570; 83036

== ENCOUNTER 2025-08-03 10:21 | Outpatient (REF) | payer MEDICARE, SELFPAY ==
[2025-08-03 11:49] LABS: Alanine Aminotransferase 15 U/L (0-31); Albumin Level 4.5 g/dL (3.5-5.0); Alkaline Phosphatase 73 U/L (39-117); Anion Gap 11 (12-20); Aspartate Amino Transferase 22 U/L (5-31); Blood Urea Nitrogen 18 mg/dL (9-16); Calcium 8.5 mg/dL (8.4-10.2); Carbon Dioxide 27 mmol/L (22-29); Chloride 107 mmol/L (96-108); Estimated Glomerular Filt Rate > 60; Potassium 3.8 mmol/L (3.3-5.1); Sodium 141 mmol/L (135-145); Total Protein 7.2 g/dL (6.5-8.0)
--- OUTSIDE RECORDS SUMMARY | 2025-08-03 12:08 | XMS_ITS | Patient Health Record ---
Author Organization [facility] Address [address] [place], [place] [address] Care Team Providers Care Front Tender Name Role Phone Elyssa Alcantar Primary Care Provider UnavailJarett Garcia Unavailable [phone] Allergies Allergen (clinical drug ingredient) Drug/Non Drug Allergy documented on EMR Reaction Allergy Type Onset Date Status Codeine Phosphate hives Drug Allergy Active Reason For Referral No Information Medications Medication SIG (Take, Route, Frequency, Duration) Notes Start Date End Date Status Atorvastatin Calcium 10 MG 1 tablet Oral ly Once a day for 30 day(s) Active metFORMIN HCl 500 MG 1 tablet with a teodora l Orally Once a day for 30 day(s) Active Lisinopril 5 MG 1 tablet Orally Once a day for 30 day(s) Active Immunizations Vaccine Route Administration Date Status Comme nts Influenza Unknown 08/29/2023 Administered Problems Problem Type SNOMED Code ICD Code Onset Dates Problem Status W/U Status Risk Notes Problem [id number] Encounter for screening for malignant neoplasm of colon (Z12.11) Active confirmed Problem Diverticular disease of colon (670501257) Diverticulosis of large intestine without perforation or abscess without bleeding (K57.30) Active confirmed Problem 136526441 Hx of adenomatou s colonic polyps (Z86.010) Active confirmed Problem 958542474 Pre-procedural examination (Z01.818) Active confirmed Plan Of Treatment Pending Test Test Name Order Date Pathology 01/02/2024 Future Test Test Name Order Date COLONOSCOPY 08/27/2012 COLONOSCOPY 10/16/2017 COLONOSCOPY 09/12/2023 Insurance Providers Payer Name Payer Address Payer Phone Subscriber Number Group Number Insured Name Patient Relationship to Insured Coverage Start Date Coverage End Date [employer] CLAIMS [address] [place] [address] [id number] JOAO BRADLEY Self - patient is the insured Medical (General) History Medical History History ICD Code Colonoscopy 11/27/2006 and with removal of a small tubular adenoma; also noted to have diverticulosis and internal hemorrhoids Denies [place],DM,CVA,Lung disease,renal dise ase Right sided breast cancer, as below-had XRT as well Negative screening colonoscopy in 2017 NIDDM HTN Hyperlipidemia Surgical History Surgery Date(Month/Year) Right lumpectomy with lymph node dissection in 2008 for breast cancer, and also received XRT Cataracts
== END 2025-08-03 10:22 | disposition home or self-care (01) ==
LOC: HO.LAB 10:21
PROVIDERS: PCP Internal Medicine; Visit Provider Internal Medicine
DX: Z00.00 Encounter for general adult medical examination without abnormal findings (principal); Z13.1 Encounter for screening for diabetes mellitus
CPT/HCPCS: 36415; 80053; 83036

== ENCOUNTER 2025-09-02 07:54 | Outpatient (REF) | payer MEDICARE, SELFPAY ==
--- OUTSIDE RECORDS SUMMARY | 2025-09-02 07:59 | XMS_ITS | Patient Health Record ---
Author Organization [facility] Address [address] [place] [address] Care Team Providers Care Ride Mechanic Name Role Phone Elyssa Alcantar Primary Care Provider UnavailJarett Garcia Unavailable [phone] Allergies Allergen (clinical drug ingredient) Drug/Non Drug Allergy documented on EMR Reaction Allergy Type Onset Date Status Codeine Phosphate hives Drug Allergy Active Reason For Referral No Information Medications Medication SIG (Take, Route, Frequency, Duration) Notes Start Date End Date Status Atorvastatin Calcium 10 MG 1 tablet Oral ly Once a day; Duration: 30 day(s) Active metFORMIN HCl 500 MG 1 tablet with a teodora l Orally Once a day; Duration: 30 day(s) Active Lisinopril 5 MG 1 tablet Orally Once a day; Duration: 30 day(s) Active Immunizations Vaccine Route Administration Date Status Comme nts Influenza Unknown 08/29/2023 Administered Problems Problem Type SNOMED Code ICD Code Onset Dates Problem Status W/U Status Risk Notes Problem Screening for malignant neoplasm of colon (835661438) Encounter for screening for malignant neoplasm of colon (Z12.11) Active confirmed Problem Diverticular disease of colon (764205698) Diverticulosis of large intestine without perforation or abscess without bleeding (K57.30) Active confirmed Problem History of adenomatous polyp of colon (515753555) Hx of adenomatous colonic polyps (Z86.010) Active confirmed Problem Pre-procedure evaluation check (744874995) Pre-procedural examination (Z01.818) Active confirmed Plan Of Treatment Pending Test Test Name Order Date Pathology 01/02/2024 Future Test Test Name Order Date COLONOSCOPY 08/27/2012 COLONOSCOPY 10/16/2017 COLONOSCOPY 09/12/2023 Insurance Providers Payer Name Payer Address Payer Phone Subscriber Number Group Number Insured Name Patient Relationship to Insured Coverage Start Date Coverage End Date [facility] PROF[employer]AL CLAIMS [address] [place] [address] [id number] ARNALDO Heath JOAO Self - patient is the insured Medical (General) History Medical History History ICD Code Colonoscopy 11/27/2006 and with removal of a small tubular adenoma; also noted to have diverticulosis and internal hemorrhoids Denies [place],DM,CVA,Lung disease,renal dise ase Right sided breast cancer, as below-had XRT as well Negative screening colonoscopy in 2017 NIDDM HTN Hyperlipidemia Surgical History Surgery Date(Month/Year) Right lumpectomy with lymph node dissection in 2008 for breast cancer, and also received XRT Cataracts
== END 2025-09-02 07:55 | disposition home or self-care (01) ==
LOC: HO.MAMMO 07:54
PROVIDERS: PCP Internal Medicine; Visit Provider Internal Medicine
DX: Z12.31 Encounter for screening mammogram for malignant neoplasm of breast (principal)
CPT/HCPCS: 77063; 77067

== ENCOUNTER → 2025-09-02 08:00 | Outpatient (BNV) | payer MEDICARE, SELFPAY | PROVIDERS: PCP Internal Medicine; Visit Provider Radiology Body Imaging | DX: Z12.31 Encounter for screening mammogram for malignant neoplasm of breast (principal) | CPT/HCPCS: 77063; 77067 ==